=== PATIENT | male | born 1995 | race Caucasian/White ===

== ENCOUNTER 2019-03-03 20:38 | Emergency (ER) | payer SELFPAY ==
[2019-03-03 21:13] VITALS: BP 140/74
[2019-03-03] MEDS ORDERED: LIDOCAINE 1% INJ-PF (10 MG/ML) 30 ML SDV INJ ONE (23:36)
[2019-03-03] MEDS ORDERED: OXYCODONE-ACETAMINOPHEN 5-325 MG TABLET PO ONE (23:36)
[2019-03-03] MEDS ORDERED: PROMETHAZINE HCL 25 MG TABLET PO ONE (23:36)
--- NOTE | 2019-03-03 23:41 | ER Document Report ---
ED Skin Rash/Insect Bite/Abscs - General Chief Complaint: Rectal Abscess Stated Complaint: CYST Time Seen by Provider: 03/03/19 23:30 Primary Care Provider: TSERING ZUNIGA MD [NO LOCAL MD] - Follow up as needed Notes: Patient is a 23-year-old male that comes emergency department for chief complaint of a painful, red, swollen, abscess area over the left upper buttocks area. He states he had this 1 time before and was told it was a pilonidal cyst abscess. He states it actually went away on its own previously but it was not nearly as bad as it is today. He denies fever/chills, nausea/vomiting, any hai y medications, any diagnosed medical history, any medical history otherwise. - Related Data Allergies/Adverse Reactions: No Known Allergies Allergy (Unverified 03/03/19 21:10) Past Medical History - General Information source: Patient - Social History Smoking Status: Never Smoker Frequency of alcohol use: None Drug Abuse: None Lives with: Spouse/Significant other Family History: Reviewed & Not Pertinent Patient has suicidal ideation: No Patient has homicidal ideation: No - Medical History Medical History: Negative Renal/ Medical History: Denies: Hx Peritoneal Dialysis Surgical Hx: Negative - Immunizations Immunizations up to date: Yes Hx Diphtheria, Pertussis, Tetanus Vaccination: Yes Review of Systems - Review of Systems Constitutional: No symptoms reported EENT: No symptoms reported Cardiovascular: No symptoms reported Respiratory: No symptoms reported Gastrointestinal: No symptoms reported Genitourinary: No symptoms reported Male Genitourinary: No symptoms reported Musculoskeletal: No symptoms reported Skin: See HPI Hematologic/Lymphatic: No symptoms reported Neurological/Psychological: No symptoms reported Physical Exam - Vital signs Vitals: Temp Pulse Resp BP Pulse Ox 99.5 F 88 18 140/74 H 99 03/03/19 21:12 03/03/19 21:12 03/03/19 21:12 03/03/19 21:12 03/03/19 21:12 - Notes Notes: GENERAL: Alert, interacts well. No acute distress. HEAD: Normocephalic, atraumatic. EYES: Pupils equal, round, and reactive to light. Extraocular movements intact. ENT: Oral mucosa moist, tongue midline. Oropharynx unremarkable. Airway patent. LUNGS: Clear to auscultation bilaterally, no wheezes, rales, or rhonchi. No respiratory distress. HEART: Regular rate and rhythm. No murmur ABDOMEN: Soft, non-tender. Non-distended. EXTREMITIES: Moves all 4 extremities spontaneously. No edema, normal radial and dorsalis pedis pulses bilaterally. No cyanosis. BACK: no cervical, thoracic, lumbar midline tenderness. No saddle anesthesia, normal distal neurovascular exam. NEUROLOGICAL: Alert and oriented x3. Normal speech. Cranial nerves II through XII grossly intact. PSYCH: Normal affect, normal mood. SKIN: Over the left upper gluteal cleft there is a erythematous, raised, indurated, fluctuant area consistent with a pilonidal cyst abscess. No significant surrounding cellulitis, examination lower down shows no abnormality specifically no perirectal abscess. Skin examination otherwise unremarkable. Course - Re-evaluation Re-evalutation: Patient with a very specific left-sided pilonidal cyst abscess, this was clean, drained, packed, discussed care, follow-up, specifically follow-up with surgical clinic, and return precautions in detail. Patient and significant other state understanding and agreement. - Vital Signs Vital signs: Temp Pulse Resp BP Pulse Ox 99.5 F 88 18 140/74 H 99 03/03/19 21:12 03/03/19 21:12 03/03/19 21:12 03/03/19 21:12 03/03/19 21:12 Procedures - Incision and Drainage Pilonidal cyst abscess (left) Type: Single Anesthetic type: 1% Lidocaine mL's of anesthetic: 9 Blade size: 11 I&D procedure: Shurclens applied, Iodoform packing placed, Sterile dressing applied Incision Method: Incision made by scalpel Amount/type of drainage: About 10 cc of purulent drainage Discharge - Discharge Clinical Impression: Pilonidal cyst with abscess Condition: Stable Disposition: HOME, SELF-CARE Additional Instructions: The pilonidal cyst abscess has been drained. The packing must be removed within 2 to 3 days. Keep clean with soap and water, keep absorbing dressing over the area. Take antibiotics as prescribed. Symptoms should resolve with time. Because this has occurred again I recommend you follow-up with the surgical clinic referral to have this taken care of to reduce likelihood of recurrence. Return if you worsen including developing pain, spreading redness, fever/chills, or any other concerning symptoms. Prescriptions: Sulfamethoxazole/Trimethoprim [Bactrim Ds Tablet] 1 each PO BID #14 tablet Forms: Return to Work Referrals: TSERING ZUNIGA MD [NO LOCAL MD] - Follow up as needed
[2019-03-04] MEDS ORDERED: HYDROCODONE/ACETAMINOPHEN 5-325 MG (6 TAB/ER DISP) PO PRN (00:42)
== END 2019-03-04 01:39 | disposition home or self-care (01) ==
LOC: ER 20:38
DX: L05.01 Pilonidal cyst with abscess (principal)
CPT/HCPCS: 10080; A6266; J3490; 99282